=== PATIENT | female | born 1955 | race American Indian/Alaskan Native ===

== ENCOUNTER 2019-11-09 06:44 | Day surgery (SDC) | payer OTHER ==
[2019-11-09] MEDS ORDERED: SODIUM CHLORIDE 0.9% 1000 ML 1,000 ML IV SCH (07:00)
--- NOTE | 2019-11-09 07:44 | Anesthesia Day of Surgery ---
Anesthesia Day of Surgery - Day of Surgery Patient Examined: Yes Patient H&P Reviewed: Yes Patient is NPO: Yes
--- NOTE | 2019-11-09 07:44 | Anesthesia Consultation ---
Anesthesia Consult and Med Hx Date of service: 11/09/19 - Airway Anesthetic Teeth Evaluation: Good ROM Head & Neck: Adequate Mental/Hyoid Distance: Adequate Mallampati Class: Class II Intubation Access Assessment: Good - Pulmonary Exam CTA: Yes - Cardiac Exam Cardiac Exam: RRR - Pre-Operative Health Status ASA Pre-Surgery Classification: ASA2 Proposed Anesthetic Plan: MAC - Pulmonary Hx Asthma: Yes - Cardiovascular System Hx Hypertension: Yes
[2019-11-09] MEDS ORDERED: propofoL 200 MG/20 ML VIAL IV ONE ×2 (07:46→08:36)
[2019-11-09] MEDS ORDERED: PHENYLEPHRINE 10 MG/1 ML INJ SDV ONE (07:46)
[2019-11-09] MEDS ORDERED: LIDOCAINE (2%) 20 MG/1 ML VIAL 20 ML MDV INFILTRATI ONE (07:46)
[2019-11-09] MEDS ORDERED: SODIUM CHLORIDE 0.9% 100 ML ONE (07:47)
[2019-11-09] MEDS ORDERED: WATER FOR IRRIG STERILE 1,000 ML BOTTLE ONE (08:18)
[2019-11-09] MEDS ORDERED: WATER FOR IRRIG STERILE 250 ML BOTTLE IR ONE (08:18)
--- NOTE | 2019-11-09 08:53 | Procedure Note ---
Date of procedure: 11/09/19 Pre-op diagnosis: Colon Polyp Screening Post-op diagnosis: other (No Colon Polyps or diverticular disease noted/ Minor,Internal Hemorrhoid) Procedure: Colonoscopy Anesthesia: MAC Surgeon: MARKIE RICARDO Estimated blood loss: none Pathology: none Condition: stable
[2019-11-09 09:03] VITALS: BP 102/63
--- NOTE | 2019-11-09 09:05 | Operative Report ---
PROCEDURE: Colonoscopy. INDICATIONS: This is a 63-year-old -[place] female with a family history of cancer. The patient's father had prostate cancer. The patient has an underlying history of hypertension. Last colonoscopy was 12 years ago. Repeat colonoscopy is done as part of colon polyp screening. She has an underlying history of asthma and hypertension. PROCEDURE: The procedure was done after getting informed consent with MAC anesthesia. Initial rectal exam was unremarkable. Instrument was passed through the rectum onto the cecum, which was identified with ileocecal valve and the appendiceal orifice. Visualization was fair. The mucosa was washed with copious amounts of water. There was no significant pathology noted in the cecum, ascending colon, transverse colon, descending colon, and sigmoid. There was no evidence of any polyps or diverticular disease and the rectum showed minor internal hemorrhoid on the retroverted view. ASSESSMENT: Colon polyp screening, family history of cancer. The patient's father had prostate cancer. No colon polyps or diverticular disease noted. Minor internal hemorrhoid. There was no bleeding associated with the procedure. No complications associated with the procedure. The patient will be asked to resume home medication. Follow up in the office in 1-2 weeks' time. Procedure was done with the help of the GI nurse Brandy Rosales the assistance of Anesthesia. JOB# [id number] KRISTAN/EDDA MCCONNELL
--- NOTE | 2019-11-09 19:24 | Post Anesthesia Evaluation ---
- Post Anesthesia Evaluation Patient Participated: Yes Airway Patent: Yes Stable Respiratory Function: Yes Nausea/Vomiting: No Temp > 96.8F: Yes Pain Manageable: Yes Adequeate Hydration: Yes Anesthesia Complications: No Block Receding Appropriately: Not Applicable Patient on Ventilator: No
== END 2019-11-09 06:45 | disposition home or self-care (01) ==
LOC: GIO 06:44
DX: Z12.11 Encounter for screening for malignant neoplasm of colon (principal); K64.8 Other hemorrhoids; I10 Essential (primary) hypertension; J45.909 Unspecified asthma, uncomplicated; Z80.0 Family history of malignant neoplasm of digestive organs; Z80.42 Family history of malignant neoplasm of prostate; Z79.899 Other long term (current) drug therapy; Z88.0 Allergy status to penicillin
CPT/HCPCS: 45378; J2370; J2704; J7030